=== PATIENT | female | born 1955 | race Caucasian/White ===

== ENCOUNTER 2019-10-30 11:27 | Outpatient (CLI) | payer OTHER, SELFPAY ==
--- NOTE | ~2019-10-30 | US_ITS ---
EXAMINATION: US venous doppler LE RT DATE: 10/30/2019 12:33 INDICATION: Right lower limb swelling TECHNIQUE: Bowen scale images without and with compression and Doppler images of the right lower extre mity veins were obtained. COMPARISON: None FINDINGS: There is thrombosis of the popliteal vein, peroneal trunk, posterior tibial veins, and grea ter saphenous vein. The right common femoral vein, profunda femoral vein, femoral vein are patent. IMPRESSION: 1. Deep venous thrombosis of the popliteal vein, peroneal trunk, posterior tibial veins. Reviewed, dictated and finalized at location A. IMPRESSION: 1. Deep venous thrombosis of the popliteal vein, peroneal trunk, posterior tibi al veins.
== END 2019-10-30 11:28 | disposition home or self-care (01) ==
LOC: ANHIMG 11:39
PROVIDERS: PCP Registered Nurse; Visit Provider Internal Medicine
DX: R60.0 Localized edema (principal); I82.431 Acute embolism and thrombosis of right popliteal vein
CPT/HCPCS: 93971

== ENCOUNTER 2020-02-17 08:04 | Outpatient (CLI) | payer OTHER, SELFPAY ==
--- NOTE | ~2020-02-17 | US_ITS ---
EXAMINATION:US venous doppler LE RT INDICATION:Right lower extremity swelling TECHNIQUE: Multiple grayscale, color flow and Doppler images of the right lower extremity deep venous systems were obtained and reviewed. COMPARISON:No prior studies for comparison. FINDINGS: The common femoral, superficial femoral and popliteal veins demonstrate normal respiratory variation, augmentation and compressibility. Color flow is also seen within the posterior tibial, pe roneal, greater saphenous and profunda veins. IMPRESSION: 1: No lower extremity deep venous thrombosis. Reviewed, dictated and finalized at location A.
--- NOTE | ~2020-02-17 | DEXA_ITS ---
Bone Density Report Name: Sammie Helton Age: 64 Sex: Female Ethnicity: White Date of : 1955 Indication: postmenopausal; height loss; Referring Provider: Shari, Dorita Study: Bone densitometry was performed. Exam Date: February 17, 2020 Accession number: [id number] Bone Density: Region BMD T-score Z-score Classification AP Spine (L2, L3) 1.034 -0.2 1.7 Normal Femoral Neck (Left) 0.674 -1.6 0.0 Osteopenia Total Hip (Left) 0.888 -0.4 0.9 Normal Total Hip Bilateral Avg 0.914 -0.2 1.1 Normal Femoral Neck (Right) 0.692 -1.4 0.2 Osteopenia Total Hip (Right) 0.938 0.0 1.3 Normal World Health Organization criteria for BMD impression classify patients as: Normal (T-score at or above -1.0), Osteopenia (T-score between -1.0 and -2.5), or Osteoporosis (T-score at or below -2.5). 10-year Fracture Risk(1): Major Osteoporotic Fracture 9.2% Hip Fracture 1.1% Reported Risk Factors: [place] (), Neck BMD=0.674, BMI=26.5 (1) FRAX(R) Version 3.08. Fracture probability calculated for an untreated patient. Fracture probability may be lower if the patient has received treatment. Clinical Information Provided by Patient: Patient maximum height was 60 Menopause Age: 48 Drinks caffeinated beverages Onset of menses at age 11 Number of children 0 Impression: The patient has low bone mass, based on the Left Femoral Neck T-score. The patient has an estimated ten-year risk of hip fracture of 1.1% and an estimated ten-year risk of major fracture of 9.2%, based on the WHO FRAX algorithm. Discussion: BONE DENSITY IS LOW AT ONE OR MORE SKELETAL SITES. This patient's lowest T-score is low at one or more skeletal sites. It meets the World Health Organization's (WHO) criteria for ?low bone mass? (T-score between -1.0 and -2.5). The patient's 10-year risk of fracture as calculated by FRAX is less than the threshold where pharmacological therapy is recommended by the National Osteoporosis Foundation (NOF). However, all treatment decisions require clinical judgment and consideration of individual patient factors, including patient preferences, comorbidities, previous drug use, risk factors not captured in the FRAX model (e.g., frailty, falls, vitamin D deficiency, increased bone turnover, interval significant decline in bone density) and possible under or overestimation of fracture risk by FRAX. The patient should follow a healthful lifestyle (good nutrition with adequate calcium and vitamin D, and appropriate weight-bearing exercise). Follow-Up: Consider repeating this study in 2 to 3 years to reassess this patient's status, or sooner if there is some new clinical indication. Reported by: MARY on 02/17/2020 9:22:00 AM. Reviewed, dictated and finalized at location A.
== END 2020-02-17 08:05 | disposition home or self-care (01) ==
PROVIDERS: PCP Registered Nurse; Visit Provider Registered Nurse
DX: R22.41 Localized swelling, mass and lump, right lower limb (principal); Z78.0 Asymptomatic menopausal state; M85.852 Other specified disorders of bone density and structure, left thigh; M85.851 Other specified disorders of bone density and structure, right thigh
CPT/HCPCS: 77080; 93971